=== PATIENT | male | born 1995 | race Caucasian/White ===

== ENCOUNTER 2020-04-27 19:36 | Emergency (ER) | payer SELFPAY ==
[~2020-04-27] VITALS: Ht 180.3 cm; Wt 86.2 kg
--- NOTE | 2020-04-27 19:54 | NUR ---
Dr. Myers at bedside for MSE
[2020-04-27] MEDS ORDERED: HYDROCODONE/APAP 10-325 MG TABLET PO ONE (20:00)
[2020-04-27] MEDS ORDERED: HYDROCODONE/APAP 10-325 MG TABLET ONE (20:04)
[2020-04-27] MEDS ORDERED: TRAZ-182 PO (20:06)
[2020-04-27] MEDS ORDERED: ESCI10TA PO (20:06)
[2020-04-27] MEDS ORDERED: BUPR1FIL SL (20:06)
--- NOTE | 2020-04-27 20:35 | NUR ---
Patient discharged to home in stable condition. Written and verbal after care instructions given. Patient verbalizes understanding of instructions. Stressed follow up or return to ER for worsening s/s. aa/ox4. able to speak in complete sentences no s/s of distress in stable condition ambulatory with steady gait instructed not to drive all belongings with pt
[2020-04-27 20:38] VITALS: BP 130/82
== END 2020-04-27 20:35 | disposition home or self-care (01) ==
LOC: ER 19:36
DX: S02.609D Fracture of mandible, unspecified, subsequent encounter for fracture with routine healing (principal); X58.XXXD Exposure to other specified factors, subsequent encounter; K08.89 Other specified disorders of teeth and supporting structures; F17.210 Nicotine dependence, cigarettes, uncomplicated; F11.20 Opioid dependence, uncomplicated; F19.10 Other psychoactive substance abuse, uncomplicated; Z79.899 Other long term (current) drug therapy; F32.9 Major depressive disorder, single episode, unspecified; F10.10 Alcohol abuse, uncomplicated; Y90.9 Presence of alcohol in blood, level not specified
CPT/HCPCS: A4663

== ENCOUNTER 2020-05-13 11:00 | Emergency (ER) | payer BC ==
[~2020-05-13] VITALS: Ht 180.3 cm; Wt 86.2 kg
[~2020-05-13 11:00] MED LIST: BUPR1FIL SL; ESCI10TA PO; TRAZ-182 PO
--- NOTE | 2020-05-13 11:35 | NUR ---
PT WAS EVALUATED BY DR JENSEN. PT WAS D/C'd TO HOME. D/C INSTRUCTIONS GIVEN TO THE PT BY DR JENSEN.
[2020-05-13 11:37] VITALS: BP 136/78
== END 2020-05-13 11:37 | disposition home or self-care (01) ==
LOC: ER 11:00
DX: G89.29 Other chronic pain (principal); R68.84 Jaw pain; F17.210 Nicotine dependence, cigarettes, uncomplicated; F32.9 Major depressive disorder, single episode, unspecified; Z79.899 Other long term (current) drug therapy
CPT/HCPCS: A4663